=== PATIENT | female | born 1960 | race African-American/Black ===

== ENCOUNTER 2019-01-19 10:11 | Emergency (ER) | payer BC, OTHER ==
[~2019-01-19] VITALS: Ht 165.1 cm; Wt 81.6 kg
[~2019-01-19 10:11] MED LIST: BENA40TA8 PO; NEBI5TAB8 PO
--- NOTE | 2019-01-19 11:34 | NUR ---
Patient discharged to home in stable conditon. Written and verbal after care instructions given. Patient verbalizes understanding of instructions.
== END 2019-01-19 11:49 | disposition home or self-care (01) ==
LOC: ER 10:11
DX: S92.352A Displaced fracture of fifth metatarsal bone, left foot, initial encounter for closed fracture (principal); I10 Essential (primary) hypertension; Z79.899 Other long term (current) drug therapy; X50.1XXA Overexertion from prolonged static or awkward postures, initial encounter; Y93.89 Activity, other specified; Y92.89 Other specified places as the place of occurrence of the external cause; Y99.8 Other external cause status
CPT/HCPCS: 73630; A4663